=== PATIENT | female | born 1995 | race Caucasian/White ===

== ENCOUNTER 2018-04-30 11:19 | Outpatient (CLI) | payer OTHER ==
--- NOTE | 2018-04-30 14:28 | ULT ---
PELVIC UTLRASOUND WITH DOPPLER: (Transabdominal, transvaginal, moy scale, color flow, and spectral Doppler) HISTORY: A 22-year-old female with amenorrhea. The patient was on control from age 16 until October 2017. The last menses was in September 2017. FINDINGS: The uterus measures 6.6 x 2.8 x 4.1 cm without focal mass or endometrial fluid. The endometrium josesito ures 5 mm in thickness. Both ovaries have a normal appearance. Flow is demonstrated to both ovaries on the transabdominal images. No adnexal mass or free fluid is seen. IMPRESSION: Unremarkable exam. POS: LISA
== END 2018-04-30 11:20 | disposition home or self-care (01) ==
LOC: SCSULT 11:19
PROVIDERS: ATTEND Student in an Organized Health Care Education/Training Program
DX: N91.1 Secondary amenorrhea (principal)
CPT/HCPCS: 76856